=== PATIENT | female | born 1970 | race Caucasian/White ===

== ENCOUNTER → 2016-12-11 16:10 | Outpatient (CLI) | payer MEDICAID | END | disposition home or self-care (01) | LOC: D.RAD 16:10 → EDBD 16:10 | DX: N20.0 Calculus of kidney (principal) ==

== ENCOUNTER → 2016-12-25 13:26 | Outpatient (CLI) | payer MEDICAID ==
[~2016-12-25 13:26] MED LIST: ADVIL200 MG PO
[2017-01-04 06:48] VITALS: BMI 29.9
== END | disposition home or self-care (01) ==
LOC: D.CT 13:26
DX: N20.0 Calculus of kidney (principal)

== ENCOUNTER 2017-01-04 05:29 | Day surgery (SDC) | payer MEDICAID ==
[2017-01-03 14:21] LABS: HEMOGLOBIN 14.5 g/dL (12-16); MCH 32.2 pg (26.0-34.0); MCV 97.8 fL (80.0-100.0); MEAN PLATELET VOLUME 9.3 fL (7.4-10.4); RBC 4.5 10x6/uL (4.00-5.40); RDW 13.1 % (11.5-14.5)
[~2017-01-04] VITALS: Ht 152.4 cm; Wt 69.4 kg
[2017-01-04 06:48] VITALS: BP 111/73; Ht 152.4 cm; Wt 69.4 kg
--- NOTE | 2017-01-04 13:41 | OP ---
PATIENT NAME: YANN MARADIAGA MEDICAL RECORD: [id number] :72 LOCATION:D.OPS ADMISSION DATE: SURGEON: SCHUYLER DUMONT MD DATE OF OPERATION: 01/04/2017 SURGEON: Schuyler Dumont MD ANESTHESIA: General anesthesia by Ugo Collins CRNA PREOPERATIVE DIAGNOSIS: Right renal stone, 4 mm. POSTOPERATIVE DIAGNOSIS: Right renal stone, 4 mm. FINDINGS: Radiodense 4mm right renal stone. PROCEDURES: Cystoscopy, right ureteral stent insertion 6-Citizen Of [place] x 24 cm with string attached. COMPLICATIONS: None. ESTIMATED BLOOD LOSS: None. CLINICAL HISTORY: This is a 46-year-old female with a prior history of kidney stones. She was found on her latest imaging to have a 4-mm stone in the right kidney. With her previous experience of renal colic, she wished to have the stone treated prophylactically before it causes pain. Today, we are going to insert a right ureteral stent and later today, she will have a right lithotripsy given to the stone. She was given Ancef 1 gram IV personnel consultant to the OR. DESCRIPTION OF PROCEDURE: The patient was given induction of general anesthesia. She was placed in the dorsal lithotomy position and prepped and draped. A 21-Citizen Of [place] cystoscope with 30-degree lens was used for visualization. She has single ureteral orifices. No bladder tumors were seen. She does have diffuse bladder inflammation; however. The Sensor wire was placed into the right ureteral orifice and up into the right renal pelvis. Over the wire, the stent was inserted. Once the stent was in correct position, the wire was entirely withdrawn. The distal end of stent was pushed into the bladder using the pusher. The string on the distal end of the stent is maintained and it hangs out of the urethra. The scope was then used to completely empty the bladder and then the scope was removed. The string was taped to the suprapubic area with a small piece of Tegaderm. TRANSINT:[id number] Voice Confirmation ID: [id number] DOCUMENT ID: [id number] SCHUYLER DUMONT MD at 1341 CC: [id number] DICTATION DATE: 01/04/17 08 STACKER TENDER: 01/04/17 1104 [facility] [address] [place] [address]
--- NOTE | 2017-01-05 09:45 | OP ---
PATIENT NAME: YANN MARADIAGA MEDICAL RECORD: [id number] :71 LOCATION:D.OPS ADMISSION DATE: SURGEON: SCHUYLER DUMONT MD DATE OF OPERATION: 01/04/2017 SURGEON: Schuyler Dumont MD ANESTHESIA: TIVA by Manda Bhatt CRNA. PREOPERATIVE DIAGNOSIS: Right 4 mm upper pole renal stone. POSTOPERATIVE DIAGNOSIS: Right 4 mm upper pole renal stone. PROCEDURE: Right ESWL times 3000 shocks. FINDINGS: Radiodense right upper pole renal stone. ESTIMATED BLOOD LOSS: None. COMPLICATIONS: None. CLINICAL HISTORY: This is the second procedure today that the patient is having. Earlier today, she had a right ureteral stent insertion. Now we are treating the stone with ESWL. Since she already had Ancef given to her earlier today, we did not give her any further antibiotics. DESCRIPTION OF PROCEDURE: The patient was placed on the treatment table and the stone was targeted in 2 planes. She was then given IV sedation. The stone was given 3000 shocks and it was seen to break up. The patient was then awakened and brought back to the preoperative holding area. She will go home today with pain medications. I will see her in about 2 weeks' time with a KUB for followup. If the KUB at that time showed that the stone has gone, then we can remove her stent by pulling on the string. TRANSINT:[id number] Voice Confirmation ID: [id number] DOCUMENT ID: [id number] SCHUYLER DUMONT MD at 0945 CC: [id number] DICTATION DATE: 01/04/17 1345 GANG PLANK WORKMAN: 01/04/17 2119 [facility] 01/04/17 [id number] [place] [address]
== END 2017-01-04 14:00 | disposition home or self-care (01) ==
LOC: D.OPS 05:29 → D.PAN 07:30 → D.OPS 07:30
PROVIDERS: Anesthesiology
DX: N20.0 Calculus of kidney (principal); F17.200 Nicotine dependence, unspecified, uncomplicated; Z01.812 Encounter for preprocedural laboratory examination

== ENCOUNTER → 2019-09-25 09:00 | Day surgery (SDC) | payer OTHER ==
[2019-09-23 09:33] LABS: HEMATOCRIT 43.1 % (36.0-48.0); MCH 29.9 pg (26.0-34.0); MCHC 32.5 g/dL (31.0-37.0); MCV 91.9 fL (80.0-100.0); MEAN PLATELET VOLUME 9.3 fL (7.4-10.4); RBC 4.69 10x6/uL (4.00-5.40); RDW 13.6 % (11.5-14.5); WBC 6.7 10x3/uL (4.8-10.8)
[~2019-09-25] VITALS: Ht 152.4 cm; Wt 73.5 kg
[~2019-09-25 09:00] MED LIST changes: +GABAPENTIN300 MG PO; +HYDROCODON-ACE1 EA10 PO; +XANAX1 MG PO; +ZANAFLEX4 MG PO
[2019-09-25 09:56] VITALS: BP 138/96; Ht 152.4 cm; Wt 73.5 kg
--- NOTE | 2019-09-25 10:22 | NUR ---
DR CARDONA NOTIFIED AND REVIEWED PT'S BEHAVIOR AND ASSESSMENT. PT IS A LOW RISK. RESOURCES GIVEN AND SHE VERBALIZES UNDERSTANDING.
--- NOTE | 2019-09-25 14:56 | NUR ---
1353 IV DC'D. CATHETER TIP INTACT. NO BLEEDING AT SITE. BANDAID APPLIED. 1415 REVIEWED DISCHARGE INSTRUCTIONS WITH PT WHO VOICES UNDERSTANDING OF INSTRUCTIONS. PT IS READY FOR DISCHARGE HOME. RECEIVED A CALL BACK FROM FAMILY THAT THEY ARE ON THEIR WAY TO PICK PT UP.
--- NOTE | 2019-09-29 11:11 | OP ---
PATIENT NAME: YANN MARADIAGA MEDICAL RECORD: [id number] :72 LOCATION:D.OPS ADMISSION DATE: SURGEON: IRVING WASHBURN MD DATE OF OPERATION: 09/25/2019 PREOPERATIVE DIAGNOSIS: Carpal tunnel syndrome of the right wrist. POSTOPERATIVE DIAGNOSIS: Carpal tunnel syndrome of the right wrist. PROCEDURE: Right carpal tunnel release. SURGEON: Irving Washburn MD ANESTHESIA: General. INTRAOPERATIVE COMPLICATIONS: None. SUMMARY OF PATHOLOGIC FINDINGS: The patient was indeed found to have a very tight transverse carpal ligament consistent with preoperative diagnosis. OPERATIVE SUMMARY IN DETAIL: After obtaining the appropriate preoperative orthopedic surgery consent as well as anesthetic consultation, evaluation and clearance, the patient was brought to the operating room and placed on the operating table in a supine position. After adequate general laryngeal mask was administered, tourniquet was placed on the proximal aspect of the right upper extremity. Right upper extremity was then prepped and draped in routine sterile fashion. The arm was elevated and exsanguinated, tourniquet was inflated to 250 mmHg. A midpalmar incision was made along the fourth metacarpal ray. Dissection was carried down to the distal aspect and transverse metacarpal ligament was identified and incised to reveal the median nerve. At this point, GillBus KnifeLight was then utilized to do direct visualization incision of the entire transverse carpal ligament proximal wrist crease. Having completed this, the wound was copiously irrigated and closed by Wesly Begum with 4-0 Prolene. The area was locally infiltrated with 0.25% Marcaine plain. Sterile dressings were applied. Tourniquet was deflated. The patient was awakened and taken to recovery room in stable condition. All final needle and sponge counts were correct. TRANSINT:[id number] Voice Confirmation ID: [id number] DOCUMENT ID: [id number] IRVING WASHBURN MD at 1111 CC: [id number] DICTATION DATE: 09/25/19 1212 RN STAFF: 09/25/19 1825 [facility] 09/25/19 [facility] [address] [place] [address]
== END | disposition home or self-care (01) ==
LOC: D.OPS 09:00 → D.PAN 12:15 → D.OPS 12:15
PROVIDERS: Anesthesiology; ATTEND Orthopaedic Surgery
DX: G56.01 Carpal tunnel syndrome, right upper limb (principal)